=== PATIENT | male | born 1995 | race Caucasian/White ===

== ENCOUNTER 2021-09-27 18:43 | Emergency (ER) | payer OTHER, SELFPAY ==
[2021-09-27 19:03] VITALS: BP 137/78; PULSE 61; TEMP 98.6; BMI 33.7
[2021-09-27] MEDS ORDERED: KETOROLAC TROMETHAMINE 30 MG/1 ML VIAL IVPUSH ONE (19:33)
[2021-09-27] MEDS ORDERED: LIDOCAINE 5% TOPICAL PATCH TP ONE (19:33)
[2021-09-27] MEDS ORDERED: KETOROLAC TROMETHAMINE 30 MG/1 ML VIAL ONE (19:58)
[2021-09-27] MEDS ORDERED: LIDOCAINE 5% TOPICAL PATCH ONE (19:59)
[2021-09-27] MEDS ORDERED: KETOROLAC TROMETHAMINE 30 MG/1 ML VIAL IM ONE (20:06)
[2021-09-27] MEDS ORDERED: LIDOCAINE PATCH REMOVAL MC SCH (22:00)
== END 2021-09-27 21:57 | disposition home or self-care (01) ==
LOC: JERFT 18:43 → JER 18:43
PROC: 3E0233Z Introduction of Anti-inflammatory into Muscle, Percutaneous Approach (ICD-10-PCS; principal; 2021-09-27)
DX: M25.552 Pain in left hip (principal); V49.40XA Driver injured in collision with unspecified motor vehicles in traffic accident, initial encounter
CPT/HCPCS: 72100-TC-FY; 72170-TC-FY; 73502-TC-LT-FY; 73700-TC-RT; 99285-25